=== PATIENT | male | born 1935 | race Caucasian/White ===

== ENCOUNTER → 2018-09-03 | Outpatient (CLI) | payer MEDICARE, OTHER | END | disposition home or self-care (01) | LOC: PLD 11:24 → LAB SHORT 11:24 | DX: D48.5 Neoplasm of uncertain behavior of skin (principal) | CPT/HCPCS: 88304 ==

== ENCOUNTER 2020-05-23 07:38 | Day surgery (SDC) | payer MEDICARE, OTHER ==
[~2020-05-23] VITALS: Ht 175.3 cm; Wt 86.5 kg
[~2020-05-23 07:38] MED LIST: Vitamin D2000 UNIT PO
--- NOTE | 2020-05-23 09:18 | NUR ---
05/23/[address] PRE INJECTED WITH BUPIVACAINE 0.75% & LIDOCAINE 2% 1:100,000 1:1. 5MLS ON EACH EYE FOR A TOTAL OF 10 MLS INJECTED.
== END 2020-05-23 09:55 | disposition home or self-care (01) ==
LOC: ORSCSDS 07:38
PROVIDERS: Ophthalmology
PROC: 080NXZZ Alteration of Right Upper Eyelid, External Approach (ICD-10-PCS; principal; 2020-05-23 09:00)
PROC: 080PXZZ Alteration of Left Upper Eyelid, External Approach (ICD-10-PCS; principal; 2020-05-23 09:00)
DX: H02.831 Dermatochalasis of right upper eyelid (principal); H02.834 Dermatochalasis of left upper eyelid
CPT/HCPCS: J2250; J2704; J3010; J7040; J7120

== ENCOUNTER 2021-01-04 20:17 | Emergency (ER) | payer OTHER, MEDICARE ==
[~2021-01-04] VITALS: Ht 175.3 cm; Wt 80.7 kg
[2021-01-04] MEDS ORDERED: Cholecalciferol1 GM MC (22:18)
[2021-01-04] MEDS ORDERED: B-COMPLEX WITH1 EAC3 PO (22:18)
[2021-01-05] MEDS ORDERED: Roxicodone5 MG PO (00:01)
== END 2021-01-05 00:30 | disposition home or self-care (01) ==
LOC: ER 20:17
DX: S42.331A Displaced oblique fracture of shaft of humerus, right arm, initial encounter for closed fracture (principal); Z51.5 Encounter for palliative care; C80.1 Malignant (primary) neoplasm, unspecified; C79.9 Secondary malignant neoplasm of unspecified site; X50.1XXA Overexertion from prolonged static or awkward postures, initial encounter
CPT/HCPCS: 29105; 36415; 73060; 76881; 96374-59; 96376-59; 99284-25; J1170